=== PATIENT | female | born 1960 | race Caucasian/White ===

== ENCOUNTER → 2016-07-18 | Outpatient (CLI) | payer OTHER | LOC: FIMAGING 08:00 | DX: Z12.31 Encounter for screening mammogram for malignant neoplasm of breast (principal); Z80.3 Family history of malignant neoplasm of breast | CPT/HCPCS: G0202 ==

== ENCOUNTER 2017-01-14 10:38 | Day surgery (SDC) | payer OTHER ==
[~2017-01-14 10:38] MED LIST: CLINDAMYCIN 600 MG/DEXTROSE 50 ML IV ONE; CLINDAMYCIN 900 MG/DEXTROSE 50 ML IV ONE
[2017-01-14] MEDS ORDERED: BUPIVACAINE 0.5% 30 ML SDV ONE (11:45)
[2017-01-14] MEDS ORDERED: ROPIVACAINE HCL 20 MG/10 ML INJ EP ONE (11:45)
[2017-01-14] MEDS ORDERED: DEXAMETHASONE 4 MG/ML VIAL ONE (11:45)
[2017-01-14] MEDS ORDERED: BACITRACIN 50,000 UNITS/10 ML SYR IRR ONE (11:46)
[2017-01-14] MEDS ORDERED: LIDOCAINE 1% 2 ML INJ ONE (11:56)
[2017-01-14] MEDS ORDERED: LIDOCAINE 1% 2 ML INJ ID PRN (12:01)
[2017-01-14] MEDS ORDERED: LR 1,000 ML IV ONE (12:01)
[2017-01-14] MEDS ORDERED: MIDAZOLAM 2 MG/2 ML VIAL IVP ONE (12:19)
[2017-01-14] MEDS ORDERED: MIDAZOLAM 2 MG/2 ML VIAL ONE (12:19)
--- NOTE | 2017-01-14 12:19 | PDANEPAE ---
ANE History of Present Illness left foot HWR and fusion ANE Past Medical History - Cardiovascular History Hx Hypertension: Yes Hx Arrhythmias: No Hx Chest Pain: No Hx Coronary Artery / Peripheral Vascular Disease: No Hx CHF / Valvular Disease: No Hx Palpitations: No Cardiovascular History Comment: MVP - Pulmonary History Hx COPD: No Hx Asthma/Reactive Airway Disease: Yes Hx Recent Upper Respiratory Infection: No Hx Oxygen in Use at Home: No Hx Sleep Apnea: No Sleep Apnea Screening Result - Last Documented: Negative Pulmonary History Comment: ENVIRONMENTAL TRIGGERS - Neurologic History Hx Cerebrovascular Accident: No Hx Seizures: No Hx Dementia: No - Endocrine History Hx Diabetes: No - Renal History Hx Renal Disorders: No Renal History Comment: STRESS INCONT - Liver History Hx Hepatic Disorders: No - Neurological & Psychiatric Hx Hx Neurological and Psychiatric Disorders: Yes Neurological / Psychiatric History Comment: DEPRESSION - Cancer History Hx Cancer: No - Congenital Disorder History Hx Congenital Disorders: No - GI History Hx Gastrointestinal Disorders: Yes Gastrointestinal History Comment: REFLUX - Other Health History Other Health History: 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 ACNE. ALLERGIC RHINITIS. INTERMITTENT LT SHLDR PAIN - Chronic Pain History Chronic Pain: Yes (LT 2&3 TOES) - Surgical History Prior Surgeries: FLORI BUNION. RT FOOT ORIF. T&A. LT. BREAST BX ANE Review of Systems Review of systems is: negative Review of Systems: - Exercise capacity Exercise capacity: >=4 METS METS (RN): 4 METS ANE Patient History - Allergies Allergies/Adverse Reactions: nitrofurantoin [From Macrobid] Allergy (Severe, Verified 01/06/17 12:34) Anaphylaxis nitrofurantoin macrocrystalline [From Macrobid] Allergy (Severe, Verified 12:34) Anaphylaxis Penicillins Allergy (Severe, Verified 01/06/17 12:34) - Home Medications Home Medications: Albuterol 5 mg/ml INH 2 puffs IH PRN PRN 07/18/15 [Last Taken 01/09/17] Coq-10 PO DAILY06 07/18/15 [Last Taken 01/09/17] Hizentra 1 Gram/5 ml Vial IV Q7D 07/18/15 [Last Taken 01/09/17] Losartan Potassium 50 mg PO DAILY06 07/18/15 [Last Taken 01/14/17] Omeprazole 40 mg PO DAILY 07/18/15 [Last Taken 01/14/17 0700] Singulair 10 mg (RX) 10 mg PO DAILY06 07/18/15 [Last Taken 01/14/17 07] Spironolactone 50 mg PO BID 07/18/15 [Last Taken 01/13/17] Symbicort 80-4.5 Mcg Inhaler 2 puffs IH BID 07/18/15 [Last Taken 01/14/17 07] Vitamin D3 PO DAILY06 07/18/15 [Last Taken 01/13/17] Zantac 150 mg PO DAILY 07/18/15 [Last Taken 01/14/17] Zyrtec 10 mg PO DAILY06 07/18/15 [Last Taken 01/13/17] Effexor 01/06/17 [Last Taken 01/13/17] Pristiq 01/06/17 [Last Taken 01/14/17] - NPO status NPO Status: no food or drink >8 hours NPO Since - Liquids (Date): 01/14/17 NPO Since - Liquids (Time): 07:00 NPO Since - Solids (Date): 01/13/17 NPO Since - Solids (Time): 19:00 - Anes Hx Anes Hx: no prior problems - Smoking Hx Smoking Status: Former smoker - Alcohol Use Alcohol Use: None - Family Anes Hx Family Hx Anesthesia Complications: NEG ANE Labs/Vital Signs - Vital Signs Vital Signs: reviewed preoperatively; see RN documention for details Blood Pressure: 121/76 Heart Rate: 70 Respiratory Rate: 16 O2 Sat (%): 97 Height: 170.18 cm Weight: 89.811 kg ANE Physical Exam - Airway Neck exam: FROM Mallampati Score: Class 3 Mouth exam: normal dental/mouth exam - Pulmonary Pulmonary: no respiratory distress - Cardiovascular Cardiovascular: regular rate and rhythym - ASA Status ASA Status: II ANE Anesthesia Plan Anesthesia Plan: MAC
--- NOTE | 2017-01-14 12:19 | PDHPUP ---
History & Physical Update H&P update statement: This history and physical update is based on an assessment of the patient which was completed after admission or registration (within 24 hours), but prior to the surgery/procedure. H&P update: H&P reviewed & patient examined, no change in patient's condition since H&P completed
[2017-01-14] MEDS ORDERED: fentaNYL 100 MCG/2 ML INJ ONE (12:21)
[2017-01-14] MEDS ORDERED: LIDOCAINE 2% 5 ML SDV ONE (12:21)
[2017-01-14] MEDS ORDERED: PROPOFOL/EMULSION 500 MG/50 ML BOTTLE IV ONE ×2 (12:21→13:28)
[2017-01-14] MEDS ORDERED: ONDANSETRON 4 MG/2 ML VIAL ONE (14:07)
[2017-01-14] MEDS ORDERED: KETOROLAC 30 MG/1 ML SDV ONE (14:20)
[2017-01-14] MEDS ORDERED: ACETAMINOPHEN 500 MG TAB PO PRN (14:20)
[2017-01-14] MEDS ORDERED: ONDANSETRON 4 MG/2 ML VIAL IVP PRN (14:20)
[2017-01-14] MEDS ORDERED: HYDROCODONE/APAP 5/325 TAB PO PRN (14:20)
[2017-01-14] MEDS ORDERED: OXYCODONE/APAP 5/325 TAB PO PRN (14:20)
[2017-01-14] MEDS ORDERED: HYDROmorphONE/DILAUDID 1 MG/ML INJ IVP PRN (14:20)
[2017-01-14] MEDS ORDERED: NALOXONE HCL 0.4 MG/ML INJ IVP PRN (14:20)
[2017-01-14] MEDS ORDERED: PROMETHAZINE HCL 25 MG/ML INJ IVP PRN (14:20)
[2017-01-14] MEDS ORDERED: fentaNYL 100 MCG/2 ML INJ IVP PRN (14:20)
[2017-01-14 15:13] VITALS: TEMP 96.8
--- NOTE | 2017-01-14 16:12 | POSTOPPROG ---
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
[2017-01-14 16:22] VITALS: BP 130/82; PULSE 74; RESP 13; O2SAT 97
--- NOTE | 2017-01-15 04:31 | GOP ---
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 PROCEDURE PERFORMED: Removal of painful plate and loose screws, left hallux; revisional arthrodesis with bone graft material with screw fixation, 2nd and 4th digits, left foot. FINDINGS: DESCRIPTION OF PROCEDURE: Patient presented to the hospital approximately an hour and a half prior t o foot surgery after having been n.p.o. past midnight. Patient's preoperative history and physical a nd all lab studies reviewed, and there were no contraindications to the proposed procedures. The pat ient was given clindamycin 600 mg IV prior to foot surgery. Patient was taken to the OR and placed on the OR table in a supine position, where the appropriate an esthetic agents were administered. This was supplemented with a local block to the left foot, utiliz ing a total of 5 cc of 1% lidocaine plain, 5 cc of 0.5% Marcaine plain, 8 cc of 0.2% Naropin. The an esthetic block was given to the posterior tibial nerve as it courses through the tarsal tunnel and al so to the left forefoot in a Knott block fashion to the bases of the 1st, 2nd, 3rd, and 4th metatarsal s. The left lower extremity was then prepped and draped in usual aseptic fashion and covered with a sterile stockinette. A sterile pneumatic ankle tourniquet was applied and padded well underneath wit h Webril. Utilizing elevation overlying Esmarch bandage, the left foot was exsanguinated, and the to urniquet was inflated to a pressure of 225 mmHg. The foot was lowered to the orthopedic table. Attention was first directed to the dorsal aspect of the left hallux where an approximate 3-4 cm line ar longitudinal incision was made to the dorsal medial aspect, centered over the plate to the proxima l phalanx. Incision was deepened through the subcutaneous tissues, to the level of the plate, which was beneath the extensor tendon. The extensor tendon was reflected laterally, and the subcutaneous t issues reflected off the plate, and the 4 screws were removed and then the plate, and placed on the b ack table. The 2 distal screws were loose. The surgical site was copiously irrigated with sterile saline/bacitracin solution. There was no inst ability to the proximal phalanx and no signs for a nonhealed fracture. However, based on past histor y and the radiographic findings suggesting potential noncomplete union of the bone to a past fracture site beneath the plate, a drill hole was created with a 2.0 drill bit in a proximal to distal fashio n in the region of the course of the plate, and Yumiko bone graft was placed within the hole created utilizing an 18-gauge needle, to allow bone bridging to create some more structure and st ability to the hallux. The surgical site was copiously irrigated with sterile saline/bacitracin solu tion. Subcutaneous tissues were reapproximated 4-0 Vicryl. The skin was reapproximated with 4-0 Pro myra, utilizing interrupted horizontal mattress sutures. Attention was then directed to the dorsal aspect of the 2nd digit and 4th digit at the level the prox imal interphalangeal joints where an approximate 3 cm incision 2-3 cm incision was made. The incisio n was deepened through the subcutaneous tissues to the level of the extensor tendon, taking care to p reserve the neurovascular structures. The extensor tendon was incised transversely overlying the enl arged proximal interphalangeal joint, where there were signs of a hypertrophic nonunion. The extenso r tendon was freed proximally and distally, and the hypertrophic and sclerotic bone from the base of the middle phalanx and head of the proximal phalanx was resected utilizing the sagittal saw perpendic ular to the shaft of the phalanges. The hypertrophic bone was placed on the back table. Drill holes were then created to the distal end of the proximal phalanx and proximal end of the middl e phalanx, to allow incorporation of the graft material. Surgical site was copiously irrigated with sterile saline/bacitracin solution. A airplane pilot hole was created to the central distal end of the proxim al phalanx. The guidewire to the headed paragon 2.0 screws was then placed through the center of the base of the middle phalanx and exited the distal tip of the 2nd digit. Yumiko was placed to the ba se of the middle phalanx, followed by the Dodge hammer toe spacer bone graft measuring 2.3 x 3 mm, followed by application of Yumiko bone graft to the proximal end of the graft. The middle phalanx w ith the graft was then held flush against the proximal phalanx with the Yumiko bone graft in place a nd the K-wire was advanced into the proximal phalanx. This procedure was performed to both the 2nd digit and the 4th digits, and then C-arm pictures were o btained, revealing good alignment of the bone graft and placement of the K-wires. Using the standard technique, the headed 2.0 Dodge partially-threaded screws were placed over the guidewire. Through the tip of the 2nd digit first, then to the tip of the 4th digit. This screw measured 36 mm in clint th. It was placed over the guidewire for the 2nd digit and 28 mm in length over the guidewire to the 4th digit. C-arm pictures were obtained. There was optimal placement of both screws holding the gr aft infusion site flushed. There was slight step-off to the 2nd digit at the level the proximal inte rphalangeal joint, however, overall placement was good. I should mention that the tourniquet was rel eased prior to placement of the screws across the guidewires. There was immediate capillary refill t o all digits, and there was hemostasis. The surgical sites were irrigated with sterile/saline bacitracin solution. The extensor tendons were reapproximated 4-0 Vicryl. Subcutaneous tissues were reapproximated with 4-0 Vicryl. The skin was reapproximated with 4-0 Prolene utilizing interrupted horizontal mattress sutures. After the placeme nt of the screws, the guidewires were removed and placed on the back table. A mildly compressive dry sterile gauze dressing was applied with Xeroform, 4 x 4 gauze, Kathya, and an George bandage. Patient tolerated the procedures and anesthesia well, was transferred to the recovery room with vital signs stable and vascular status intact to the left lower extremity. In the recovery room, the nela ent received postoperative oral and written home care instructions. The patient was instructed to we ar the cast boot postoperatively for protection when weightbearing and to minimize weightbearing acti vities the first few days after surgery. Prescriptions were given for OxyContin and Vicodin to take postoperatively as prescribed for pain. The procedures went well without complications. She is sche duled for 1st postoperative visit in 2 days and is to call the office earlier if any questions or pro blems should arise. Postoperative radiographs were ordered. Patient was dispensed a Cryo/Cuff, inst ructed on its usage. /[id number]/MODL
== END 2017-01-14 16:45 | disposition home or self-care (01) ==
LOC: FSGY 10:38
PROVIDERS: ATTEND Podiatrist
PROC: 0QPP04Z Removal of Internal Fixation Device from Left Metatarsal, Open Approach (ICD-10-PCS; principal; 2017-01-14 12:00)
PROC: 0QPR04Z Removal of Internal Fixation Device from Left Toe Phalanx, Open Approach (ICD-10-PCS; principal; 2017-01-14 12:00)
PROC: 0SGQ04Z Fusion of Left Toe Phalangeal Joint with Internal Fixation Device, Open Approach (ICD-10-PCS; principal; 2017-01-14 12:00)
PROC: 0SG Lower Joints, Fusion (ICD-10-PCS; principal; 2017-01-14 12:00)
PROC: 0L8W0ZZ Division of Left Foot Tendon, Open Approach (ICD-10-PCS; principal; 2017-01-14 12:00)
DX: T84.84XA Pain due to internal orthopedic prosthetic devices, implants and grafts, initial encounter (principal); T84.293A Other mechanical complication of internal fixation device of bones of foot and toes, initial encounter; S92.919 Unspecified fracture of unspecified toe(s); M20.62 Acquired deformities of toe(s), unspecified, left foot; I10 Essential (primary) hypertension; F32.9 Major depressive disorder, single episode, unspecified; F41.9 Anxiety disorder, unspecified; J45.909 Unspecified asthma, uncomplicated; L20.9 Atopic dermatitis, unspecified; K21.9 Gastro-esophageal reflux disease without esophagitis; D80.3 Selective deficiency of immunoglobulin G [IgG] subclasses; M84.47 Pathological fracture, ankle, foot and toes; M79.675 Pain in left toe(s)
CPT/HCPCS: 20680; 20900; 28230; 28285; 73630; C1769; C1713; C1762; J1100; J1885; J2250; J2405; J2704; J2795; J3010

== ENCOUNTER → 2017-07-25 | Outpatient (CLI) | payer OTHER | LOC: FIMAGING 08:23 | PROVIDERS: ATTEND Family Medicine | DX: Z12.31 Encounter for screening mammogram for malignant neoplasm of breast (principal); Z80.3 Family history of malignant neoplasm of breast ==

== ENCOUNTER → 2018-08-21 | Outpatient (CLI) | payer OTHER | LOC: FIMAGING 13:56 | PROVIDERS: ATTEND Family Medicine | DX: Z12.31 Encounter for screening mammogram for malignant neoplasm of breast (principal); Z80.3 Family history of malignant neoplasm of breast ==